=== PATIENT | male | born 1985 | race African-American/Black ===

== ENCOUNTER 2019-01-21 19:19 | Emergency (ER) | payer OTHER ==
[~2019-01-21] VITALS: Ht 185.4 cm; Wt 114.3 kg
[2019-01-21] MEDS ORDERED: IBUPROFEN 600 MG TAB PO STA (21:06)
[2019-01-21 21:12] VITALS: BP 143/90
== END 2019-01-21 20:08 | disposition home or self-care (01) ==
LOC: FSED 19:19
DX: S39.012A Strain of muscle, fascia and tendon of lower back, initial encounter (principal); M54.9 Dorsalgia, unspecified; V43.62XA Car passenger injured in collision with other type car in traffic accident, initial encounter; Y92.410 Unspecified street and highway as the place of occurrence of the external cause; F17.200 Nicotine dependence, unspecified, uncomplicated
CPT/HCPCS: 99283